=== PATIENT | female | born 1930 | race Caucasian/White ===

== ENCOUNTER 2020-02-19 10:04 | Outpatient (CLI) | payer MEDICARE, OTHER ==
[~2020-02-19] VITALS: Ht 160 cm; Wt 73.9 kg
[~2020-02-19 10:04] MED LIST: ALPR-624 PO; AMIO200T61 PO; ASPI-1265 PO; BUPR-94 PO; CHOL400C8 PO; COR3.125T PO; CRAN425C5 PO; DOCU-264 PO; GABA-532 PO; LEVO175T2 PO; LIRA0.6P SQ; LISI1TAB29 PO; OMEG1CAP21 PO
[2020-02-19 10:35] LABS: ABG BASE EXCESS -3.3 mmol/L (-2.0-3.0); ABG HCO3 18.9 mmol/L (22.0-26.0); ABG OXYGEN SATURATION 97.4 % (95-98); ABG PCO2 (T) 25.7 mmHg (35.0-45.0); ABG PO2 (T) 113.5 mmHg (83-108); ALLEN'S TEST POSITIVE; FCOHb 0.2 % (0.5-1.5); FO2Hb 97.2 % (94-100); TOTAL HEMOGLOBIN 10.6 G/dl (12.0-16.0)
[2020-02-19] MEDS ORDERED: albuterol 2.5 MG/3 ML nebule NEB PRN (10:55)
[2020-02-26] MEDS ORDERED: FURO-150 PO (18:54)
[2020-02-26] MEDS ORDERED: POTASSIUM CL ER PO (18:54)
[2020-02-26] MEDS ORDERED: PRAV40TA3 PO (18:54)
[2020-02-26] MEDS ORDERED: DOXY-1 PO (18:54)
[2020-02-26] MEDS ORDERED: ESTR10IN2 (18:54)
[2020-02-27] MEDS ORDERED: ALPR-624 PO (14:48)
[2020-03-03] MEDS ORDERED: ALPR1TAB2 PO (20:04)
[2020-03-05] MEDS ORDERED: LEVO500T89 PO (12:01)
== END 2020-02-19 23:59 | disposition home or self-care (01) ==
LOC: RT 10:04
PROVIDERS: ATTEND Internal Medicine Cardiovascular Disease
DX: J44.9 Chronic obstructive pulmonary disease, unspecified (principal); R06.02 Shortness of breath; J45.998 Other asthma; D64.9 Anemia, unspecified
CPT/HCPCS: 36600; 82803; 85018; 94060; 94727; 94729; 94760

== ENCOUNTER 2020-03-06 15:04 | Inpatient (IN) | payer MEDICARE, OTHER ==
[~2020-03-06] VITALS: Ht 160 cm; Wt 63.6 kg
[~2020-03-06 15:04] MED LIST changes: -ALPR-624 PO; +ALPR1TAB2 PO; -AMIO200T61 PO; -CRAN425C5 PO; -DOCU-264 PO; +DOXY-1 PO; +ESTR10IN2; +FURO-150 PO; +LEVO500T89 PO; -LIRA0.6P SQ; -OMEG1CAP21 PO; +POTASSIUM CL ER PO; +PRAV40TA3 PO
[2020-03-06] MEDS ORDERED: normal saline 1000ML IV soln IVB ONE (16:00)
--- NOTE | 2020-03-06 16:26 | NUR ---
700ml clear urine out via straight cath.
[2020-03-06 16:34] LABS: EOSINOPHILS % (AUTO) 0.1 % (0-6); HEMOGLOBIN 9.9 g/dl (12.0-16.0); LYMPHOCYTES # (AUTO) 1.1 X10'3 (1.1-4.8); MONOCYTES # (AUTO) 1.1 X10'3 (0-0.9); NEUTROPHILS # (AUTO) 4.5 X10'3 (1.8-7.7); PLATELET COUNT 238 X10'3 (140-440); WHITE BLOOD COUNT 6.8 X10'3 (4.5-11.0)
[2020-03-06 16:36] LABS: CLARITY,URINE CLEAR (Clear); COLOR,URINE YELLOW (Yellow); GLUCOSE, URINE NEGATIVE (Neg); KETONES,URINE NEGATIVE (Neg); LEUKOCYTE ESTERASE ,URINE NEGATIVE (Neg); NITRITES, URINE NEGATIVE (Neg); OCCULT BLOOD,URINE NEGATIVE (Neg); PROTEIN,URINE NEGATIVE (Neg); UROBILINOGEN,URINE 0.2 E.U/dL (0.2-1.0)
[2020-03-06 16:37] LABS: BASOPHILS # (AUTO) 0.1 X10'3 (0-0.2); BASOPHILS % (AUTO) 0.9 % (0-1); HEMATOCRIT 28.8 % (35.0-45.0); LYMPHOCYTES % (AUTO) 16.7 % (21-51); MEAN CORPUSCULAR HEMOGLOBIN 29.7 PG (27.0-31.0); MEAN CORPUSCULAR HGB CONC 34.4 g/dL (33.0-36.5); MEAN CORPUSCULAR VOLUME 86.4 FL (78-98); MEAN PLATELET VOLUME 7.1 FL (7.4-10.4); MONOCYTES % (AUTO) 16.7 % (2-12); NEUTROPHILS % (AUTO) 65.6 % (42-75); RED BLOOD COUNT 3.33 X10'6 (4.20-5.60); RED CELL DISTRIBUTION WIDTH 13.8 % (11.5-14.5)
[2020-03-06 16:46] LABS: UA COLLECTION TYPE STRAIGHT CATH
[2020-03-06 16:51] LABS: ALANINE AMINOTRANSFERASE 15 U/L (12-78); ALBUMIN/GLOBULIN RATIO 0.6 (1.1-1.5); ALKALINE PHOSPHATASE 65 IU/L (46-116); ANION GAP 7 (8-16); ASPARTATE AMINO TRANSFERASE 18 U/L (10-37); BILIRUBIN,TOTAL 0.6 MG/DL (0.1-1.0); BLOOD UREA NITROGEN 25 MG/DL (7-18); BUN/CREATININE RATIO 29.8 (6.6-38.0); CALCIUM 9.5 MG/DL (8.5-10.1); CHLORIDE 98 MMOL/L (99-107); CREATININE 0.84 MG/DL (0.40-0.90); GLUCOSE 85 MG/DL (70-104); POTASSIUM 4.5 MMOL/L (3.5-5.1); SODIUM 132 MMOL/L (135-145); TOTAL CARBON DIOXIDE 27.2 MMOL/L (24-32); TOTAL PROTEIN 7.9 G/DL (6.4-8.2); eGFR 64 ML/MIN
[2020-03-06 16:53] LABS: TROPONIN I < 0.04 NG/ML (0.0-0.05)
[2020-03-06] MEDS ORDERED: normal saline 1000ml 1,000 ML IV SCH (17:42)
[2020-03-06] MEDS ORDERED: magnesium hydroxide 30ml (MOM) UD suspension PO PRN (17:45)
[2020-03-06] MEDS ORDERED: ondansetron/PF 4mg/2ml inj IV PRN (17:45)
[2020-03-06] MEDS ORDERED: acetaminophen 325mg tablet PO PRN (17:45)
[2020-03-06] MEDS ORDERED: mag hydrox/Alum hydrox/simeth 30ml oral suspension PO PRN (17:45)
--- NOTE | 2020-03-06 18:35 | NUR ---
Pt was seen sitting up in bed c/o SOB. O2 sats 97% on RA, placed on 1L for comfort. Patient states she feels warm and like she can't breathe. VS WNL.
[2020-03-06] MEDS ORDERED: ALBU2.5V10 NEB (18:44)
[2020-03-06] MEDS ORDERED: LEVO500T89 PO (18:44)
[2020-03-06] MEDS ORDERED: LISI10TA4 PO (18:44)
[2020-03-06] MEDS ORDERED: POTA8CAP20 PO (18:44)
--- NOTE | 2020-03-06 19:20 | NUR ---
Patient in room [facility]TH[facility] 4009. I have received report from Era Paulson had the opportunity to ask questions and assume patient care.
[2020-03-06] MEDS ORDERED: ALPRAZolam 0.25mg tablet PO PRN (19:45)
[2020-03-06 20:45] VITALS: BP 137/60
[2020-03-06] MEDS: heparin, porcine 5000 units/ml vial SQ SCH (21:42)
[2020-03-07] VITALS: BP 138/56
[2020-03-07 06:00] VITALS: BP 133/56
[2020-03-07 06:19] LABS: BASOPHILS % (AUTO) 0.4 % (0-1); HEMATOCRIT 25.7 % (35.0-45.0); HEMOGLOBIN 8.8 g/dl (12.0-16.0); LYMPHOCYTES # (AUTO) 1.3 X10'3 (1.1-4.8); NEUTROPHILS # (AUTO) 3.5 X10'3 (1.8-7.7)
--- NOTE | 2020-03-07 06:20 | NUR ---
Problems reprioritized. Patient report given, questions answered & plan of care reviewed with Shahnaz HIGGINBOTHAM.
[2020-03-07 06:21] LABS: EOSINOPHILS % (AUTO) 0 % (0-6); LYMPHOCYTES % (AUTO) 21.9 % (21-51); MEAN CORPUSCULAR HEMOGLOBIN 29.6 PG (27.0-31.0); MEAN CORPUSCULAR HGB CONC 34.1 g/dL (33.0-36.5); MEAN CORPUSCULAR VOLUME 86.8 FL (78-98); MEAN PLATELET VOLUME 6.6 FL (7.4-10.4); MONOCYTES # (AUTO) 1.1 X10'3 (0-0.9); MONOCYTES % (AUTO) 17.9 % (2-12); NEUTROPHILS % (AUTO) 59.8 % (42-75); PLATELET COUNT 227 X10'3 (140-440); RED BLOOD COUNT 2.96 X10'6 (4.20-5.60); RED CELL DISTRIBUTION WIDTH 13.9 % (11.5-14.5); WHITE BLOOD COUNT 5.9 X10'3 (4.5-11.0)
[2020-03-07 06:51] LABS: ALBUMIN 2.7 G/DL (3.4-5.0); ANION GAP 6 (8-16); BLOOD UREA NITROGEN 24 MG/DL (7-18); BUN/CREATININE RATIO 27.6 (6.6-38.0); CALCIUM 8.8 MG/DL (8.5-10.1); CHLORIDE 102 MMOL/L (99-107); CREATININE 0.87 MG/DL (0.40-0.90); POTASSIUM 4.1 MMOL/L (3.5-5.1); SODIUM 134 MMOL/L (135-145); TOTAL CARBON DIOXIDE 25.7 MMOL/L (24-32); eGFR 61 ML/MIN
[2020-03-07 07:04] LABS: GLUCOSE 99 MG/DL (70-104)
[2020-03-07 07:37] LABS: TOTAL CELLS COUNTED 100
[2020-03-07 07:39] LABS: PLATELET ESTIMATE NORMAL
[2020-03-07] MEDS ORDERED: albuterol 2.5 MG/3 ML nebule NEB PRN (08:05)
[2020-03-07] MEDS ORDERED: buproprion 150mg XL (24-hour) tablet PO SCH (08:05)
[2020-03-07] MEDS ORDERED: ALPRAZOLAM 0.25 MG PO PRN (08:05)
[2020-03-07 10:00] VITALS: BP 141/52
[2020-03-07] MEDS ORDERED: buPROPion SR 150mg tablet PO SCH (10:09)
[2020-03-07] MEDS: heparin, porcine 5000 units/ml vial SQ SCH ×2 (10:13→21:51)
[2020-03-07] MEDS: levoTHYROXINE 25mcg tablet PO SCH (10:13)
[2020-03-07] MEDS: furosemide 20MG tablet PO SCH (10:13)
[2020-03-07] MEDS: vitamin D (cholecalciferol) 1,000 unit tablet PO SCH (10:14)
[2020-03-07] MEDS: lisinopril 10 MG tablet PO SCH (10:14)
[2020-03-07] MEDS: potassium chloride 8mEq ER tablet PO SCH (10:15)
[2020-03-07] MEDS: gabapentin 300mg capsule PO SCH ×2 (13:00→21:00)
[2020-03-07 18:00] VITALS: BP 152/59
--- NOTE | 2020-03-07 18:32 | NUR ---
Problems reprioritized. Patient report given, questions answered & plan of care reviewed with ANAHY Mckinney.
[2020-03-07] MEDS ORDERED: pravastatin 10mg tablet PO SCH (21:00)
[2020-03-07] MEDS ORDERED: pravastatin 40mg tablet PO SCH (21:03)
[2020-03-07] MEDS: DOXYCYCLINE 100MG CAPSULE PO SCH (21:52)
[2020-03-07] MEDS: lactobacillus rhamnosus 10,000 MMU CELLS/CAPSULE PO SCH (21:53)
[2020-03-07] MEDS: carVEDilol 3.125mg tablet PO SCH (21:53)
[2020-03-07 22:00] VITALS: BP 120/56
--- NOTE | 2020-03-08 06:06 | NUR ---
Problems reprioritized. Patient report given, questions answered & plan of care reviewed with ANAHY DANIEL.
[2020-03-08 06:20] LABS: BASOPHILS % (AUTO) 0.4 % (0-1); EOSINOPHILS % (AUTO) 0.1 % (0-6); HEMATOCRIT 24.9 % (35.0-45.0); HEMOGLOBIN 8.5 g/dl (12.0-16.0); LYMPHOCYTES % (AUTO) 16.8 % (21-51); MEAN CORPUSCULAR HEMOGLOBIN 29.3 PG (27.0-31.0); MEAN CORPUSCULAR HGB CONC 34.3 g/dL (33.0-36.5); MEAN CORPUSCULAR VOLUME 85.4 FL (78-98); MEAN PLATELET VOLUME 6.5 FL (7.4-10.4); MONOCYTES # (AUTO) 0.9 X10'3 (0-0.9); MONOCYTES % (AUTO) 15.1 % (2-12); NEUTROPHILS # (AUTO) 3.9 X10'3 (1.8-7.7); NEUTROPHILS % (AUTO) 67.6 % (42-75); PLATELET COUNT 215 X10'3 (140-440); RED BLOOD COUNT 2.92 X10'6 (4.20-5.60); RED CELL DISTRIBUTION WIDTH 14.1 % (11.5-14.5); WHITE BLOOD COUNT 5.8 X10'3 (4.5-11.0)
--- NOTE | 2020-03-08 06:30 | NUR ---
Problems reprioritized. Patient report given, questions answered & plan of care reviewed with ANAHY Mckinney.
[2020-03-08 06:41] LABS: ALBUMIN 2.9 G/DL (3.4-5.0); ANION GAP 8 (8-16); BLOOD UREA NITROGEN 26 MG/DL (7-18); BUN/CREATININE RATIO 30.2 (6.6-38.0); CALCIUM 8.7 MG/DL (8.5-10.1); CHLORIDE 100 MMOL/L (99-107); CREATININE 0.86 MG/DL (0.40-0.90); POTASSIUM 3.8 MMOL/L (3.5-5.1); SODIUM 132 MMOL/L (135-145); eGFR 62 ML/MIN
[2020-03-08 06:42] LABS: GLUCOSE 106 MG/DL (70-104)
[2020-03-08 07:20] VITALS: BP 110/53
[2020-03-08] MEDS: carVEDilol 3.125mg tablet PO SCH (07:26)
[2020-03-08] MEDS: lactobacillus rhamnosus 10,000 MMU CELLS/CAPSULE PO SCH (07:27)
[2020-03-08] MEDS: potassium chloride 8mEq ER tablet PO SCH (07:27)
[2020-03-08] MEDS: furosemide 20MG tablet PO SCH (07:28)
[2020-03-08] MEDS: levoTHYROXINE 25mcg tablet PO SCH (07:28)
[2020-03-08] MEDS: DOXYCYCLINE 100MG CAPSULE PO SCH (07:29)
[2020-03-08] MEDS: vitamin D (cholecalciferol) 1,000 unit tablet PO SCH (07:29)
[2020-03-08] MEDS: lisinopril 10 MG tablet PO SCH (07:30)
[2020-03-08] MEDS: gabapentin 300mg capsule PO SCH ×2 (07:38→13:00)
[2020-03-08] MEDS: heparin, porcine 5000 units/ml vial SQ SCH (07:39)
[2020-03-08] MEDS ORDERED: aspirin 81mg tab.chew PO SCH (08:00)
[2020-03-08 10:45] VITALS: BP 131/77
[2020-03-08 11:00] VITALS: BP_SYST 109; BP_SYST 133; BP_DIAS 42; BP_DIAS 53
--- NOTE | 2020-03-08 15:00 | NUR ---
Received discharge orders from Dr. Gaona for pt to discharge today to home. Received message from patient's daughter that pt already uses [facility] to provide Homecare Services. Placed call to RADHA Messer to inform resumption of care needs to be completed for pt to resume services with HH. Discontinued IV's in her Right WRist and Left AC with cannula intact. No redness/swelling at insertion site. Applied pressure and bandaid at each site. Reviewed discharge instructions with the patient at bedside by Ольга, Student Nurse, [facility]. Pt left with signed discharge instructions in her folder. Pt assisted to w/c and discharged to front parking lot with belongings at 1500.
[2020-06-05] MEDS ORDERED: ESTRADIOL 1 UNIT SCH (08:00)
== END 2020-03-08 14:30 | disposition home health service (06) | DRG 41 ==
LOC: ER 15:04 → ED HOLD 17:42 → EDBEDREQ 18:53 → ORTHO 4S 19:35 → OBSVTOIN 03-07 13:00
PROVIDERS: ADMIT Family Medicine; ATTEND Family Medicine
PROC: 07B53ZX Excision of Right Axillary Lymphatic, Percutaneous Approach, Diagnostic (ICD-10-PCS; principal; 2020-03-08)
DX: G93.40 Encephalopathy, unspecified (principal); J90 Pleural effusion, not elsewhere classified; Z90.49 Acquired absence of other specified parts of digestive tract; I25.10 Atherosclerotic heart disease of native coronary artery without angina pectoris; J44.9 Chronic obstructive pulmonary disease, unspecified; Z95.1 Presence of aortocoronary bypass graft; E78.5 Hyperlipidemia, unspecified; R59.1 Generalized enlarged lymph nodes; D64.9 Anemia, unspecified; I10 Essential (primary) hypertension; E03.9 Hypothyroidism, unspecified; Z88.0 Allergy status to penicillin; Z88.8 Allergy status to other drugs, medicaments and biological substances; Z88.1 Allergy status to other antibiotic agents; Z88.5 Allergy status to narcotic agent
CPT/HCPCS: 10005; 36415; 70450; 71045; 80048; 80053; 81003; 82948; 83605; 84484; 85025; 85610; 87081; 93005; 94760; 96360; 97110; 97116; 97162; 97530; 99285; G0378; J1644; J7030